=== PATIENT | male | born 1970 | race Caucasian/White ===

== ENCOUNTER 2018-06-09 15:45 | Emergency (ER) | payer OTHER ==
[2018-06-09] MEDS ORDERED: Iohexol 240 (50 ml) PO ONE (16:07)
[2018-06-09] MEDS ORDERED: Sodium Chloride 0.9% 1,000 ML IV STA (16:07)
--- NOTE | 2018-06-09 16:36 | ED PDOC ---
HPI: Abdomen Time Seen by Provider: 06/09/18 15:58 Chief Complaint (Nursing): Back Pain Chief Complaint (Provider): Abd pain History Per: Patient History/Exam Limitations: no limitations Onset/Duration Of Symptoms: Days (1 month) Additional Complaint(s): Pt. with abd pain all over and back pain. No numbness, tingles, weakness, incontinence, constipation. No fever. No nausea, vomit, diarrhea. Not taking his meds for htn, dm, chol. No chest pain, dyspnea. No testicular pain, dysuria. Past Medical History Reviewed: Nursing Documentation, Vital Signs Vital Signs: Last Vital Signs Temp 99.0 F 06/09/18 15:50 Pulse 88 06/09/18 15:50 Resp 18 06/09/18 15:50 BP 166/91 H 06/09/18 15:50 Pulse Ox 100 06/09/18 15:50 - Medical History PMH: Diabetes, HTN, Hypercholesterolemia - Surgical History Surgical History: No Surg Hx - Family History Family History: States: Unknown Family Hx - Living Arrangements Living Arrangements: With Family - Home Medications Home Medications: Ambulatory Orders Medication Instructions Recorded Dicyclomine [Bentyl] 20 mg PO Q6 PRN #15 tab 04/16/15 Famotidine [Pepcid] 20 mg PO BID #10 tab 04/16/15 - Allergies Allergies/Adverse Reactions: Allergies Allergy/AdvReac Type Severity Reaction Status Date / Time No Known Allergies Allergy Verified 06/09/18 15:50 Review of Systems ROS Statement: Except As Marked, All Systems Reviewed And Found Negative Gastrointestinal: Positive for: Abdominal Pain Musculoskeletal: Positive for: Back Pain Physical Exam - Reviewed Nursing Documentation Reviewed: Yes Vital Signs Reviewed: Yes - Physical Exam Appears: Positive for: Non-toxic, No Acute Distress Head Exam: Positive for: ATRAUMATIC, NORMAL INSPECTION, NORMOCEPHALIC Skin: Positive for: Normal Color, Warm, DRY Eye Exam: Positive for: EOMI, Normal appearance, PERRL ENT: Positive for: Normal ENT Inspection Neck: Positive for: Normal, Painless ROM Cardiovascular/Chest: Positive for: Regular Rate, Rhythm Respiratory: Positive for: CNT, Normal Breath Sounds Gastrointestinal/Abdominal: Positive for: Soft, Tenderness (diffuse) Back: Positive for: Normal Inspection. Negative for: L CVA Tenderness, R CVA Tenderness Extremity: Positive for: Normal ROM. Negative for: Tenderness Neurologic/Psych: Positive for: Alert, Oriented - Laboratory Results Result Diagrams: 06/09/18 16:00 06/09/18 16:00 Interpretation Of Abn Labs: 357 glucose - ECG ECG: Positive for: Interpreted By Me, Viewed By Me ECG Rhythm: Positive for: Normal QRS, Normal ST Segment, Sinus Rhythm O2 Sat by Pulse Oximetry: 100 Pulse Ox Interpretation: Normal - Progress ED Course And Treament: 1813: Dr. Painting took over care. Fu on ct. Disposition - Clinical Impression Clinical Impression: Abdominal pain - Patient ED Disposition Is Patient to be Admitted: Transfer of Care - Disposition Disposition Time: 18:14 Condition: STABLE Patient Signed Over To: Alexys Painting III
[2018-06-09 16:48] LABS: PROTHROMBIN TIME 11.4 Seconds (9.8-13.1)
[2018-06-09 16:51] LABS: PARTIAL THROMBOPLASTIN TIME 33.1 Seconds (25.6-37.1)
[2018-06-09 17:00] LABS: BASO % 0.6 % (0.0-2.0); EOS # 0.2 K/uL (0.0-0.7); HEMOGLOBIN 15.6 g/dL (12.0-18.0); LYMPH # 1.7 K/uL (1.0-4.3); LYMPH % 30.3 % (20.0-40.0); MEAN CELL VOLUME 86.9 fl (80.0-94.0); MEAN CORPUSCULAR HEMOGLOBIN 30.6 pg (27.0-31.0); MEAN CORPUSCULAR HGB CONC 35.2 g/dL (33.0-37.0); MEAN PLATELET VOLUME 9.4 fl (7.2-11.7); MONO # 0.5 K/uL (0.0-0.8); MONO % 8.3 % (0.0-10.0); NEUT # 3.2 K/uL (1.8-7.0); NEUT % 57.8 % (50.0-75.0); NRBC % 0.2 % (0.0-0.0); RBC 5.11 Mil/uL (4.40-5.90); WHITE BLOOD COUNT 5.5 K/uL (4.8-10.8)
[2018-06-09 17:04] LABS: BARBITURATES, UR NEGATIVE (NEGATIVE); BENZODIAZEPINES, UR NEGATIVE (NEGATIVE); OPIATES, UR NEGATIVE (NEGATIVE); PHENCYCLIDINE, UR NEGATIVE (NEGATIVE)
[2018-06-09 17:06] LABS: ALB/GLOB RATIO 1.3 (1.0-2.1); ALBUMIN 4.3 g/dL (3.5-5.0); ALT/SGPT 38 U/L (21-72); AST/SGOT 28 U/L (17-59); BLOOD UREA NITROGEN 18 mg/dl (9-20); CALCIUM 9.1 mg/dL (8.4-10.2); GFR NON-AFRICAN AMERICAN > 60; LIPASE 169 U/L (23-300)
[2018-06-09] MEDS ORDERED: Iohexol 300 100 ML IJ ONE (17:46)
[2018-06-09] MEDS ORDERED: Sodium Chloride 0.9% 100 ML ONE (17:46)
--- NOTE | 2018-06-09 19:47 | ED PDOC ---
- Laboratory Results Result Diagrams: 06/09/18 16:00 06/09/18 16:00 - ECG O2 Sat by Pulse Oximetry: 100 Medical Decision Making Medical Decision Making: recd approx 6pm on endorsement from Dr Haskins pending CT abd pelv Report from Dr Alva radiologist reviewed On re-eval states feeling somewhat better. Abdomen without focal tenderness 740pm. Results explained UDip neg for evidence infection GI consult recommended as outpatient Rx motrin, bentyl and mad citrate as he reports constipation. Wedding Planner offered but family refused and wanted son to translate. Disposition - Clinical Impression Clinical Impression: Abdominal pain - POA Present On Arrival: None - Disposition Referrals: Luciano Villaseñor MD [Staff Provider] - [facility] [Outside] Disposition: Routine/Home Disposition Time: 19:47 Condition: STABLE Additional Instructions: Followup with clinic and GI doctor for further testing. Return to ER for any new or worsening symptoms. Prescriptions: Dicyclomine [Bentyl] 10 mg PO QID PRN #12 cap PRN Reason: Gi Distress Ibuprofen [Motrin Tab] 600 mg PO Q6 PRN #15 tab PRN Reason: Pain, Moderate (4-7) Magnesium Citrate [Citrate of Mag] 50 ml PO BID PRN #1 bottle PRN Reason: Constipation Instructions: Low Back Pain (DC), Acute Abdomen (Belly Pain), Adult (DC) Forms: [facility] (Tunisian) Print Language: [place] CITIZEN
[2018-06-09 20:21] VITALS: BP 148/95; PULSE 67; RESP 16; TEMP 98.5; O2SAT 99
--- NOTE | 2018-06-10 09:44 | CARD ---
APPROVED REPORT Date of service: 06/09/2018 EKG Measurement Heart [id number] <Conclusion> Normal sinus rhythm Normal ECG
--- NOTE | 2018-06-10 12:31 | CT ---
Date of service: 06/09/2018 PROCEDURE: CT Abdomen and Pelvis with contrast HISTORY: abd pain COMPARISON: None. TECHNIQUE: Following oral and intravenous contrast administration, a CT examination of the abdomen and pelvis performed from the domes of the diaphragms to the symphysis pubis with reformatted datasets provided not only axial but also sagittal and coronal series. Coronal and sagittal reformats were generated. Contrast dose: Omnipaque 300, 98 cc Radiation dose: Total exam DLP = 1024.24 mGy-cm. This CT exam was performed using one or more of the following dose reduction techniques: Automated exposure control, adjustment of the mA and/or kV according to patient size, and/or use of iterative reconstruction technique. FINDINGS: LOWER THORAX: Small hiatal hernia identified. Trace fibrosis/linear atelectasis lingula base. LIVER: Diminished attenuation is seen throughout the liver compatible hepatic steatosis. No discrete mass or intrahepatic biliary dilatation appreciated. GALLBLADDER AND BILE DUCTS: Contracted gallbladder otherwise unremarkable. PANCREAS: Unremarkable. No gross lesion or ductal dilatation. SPLEEN: Unremarkable. ADRENALS: Unremarkable. No mass. KIDNEYS AND URETERS: Unremarkable. No hydronephrosis. No solid mass. VASCULATURE: Unremarkable. No aortic aneurysm. No aortic atherosclerotic calcification or mural plaque present. BOWEL: Unremarkable. No obstruction. No gross mural thickening. Moderate fecal loading throughout the majority colon. APPENDIX: Normal appendix. PERITONEUM: Unremarkable. No free fluid. No free air. LYMPH NODES: Unremarkable. No enlarged lymph nodes. BLADDER: Urinary bladder is decompressed limiting evaluation the wall. Underlying cystitis not completely excluded. REPRODUCTIVE: Unremarkable. BONES: No acute fracture. OTHER FINDINGS: None. IMPRESSION: 1. No bowel obstruction, mesenteric edema, ascites or free intra peritoneal gas collection. No suspicious bowel findings. 2. Urinary bladder is decompressed limiting evaluation of the wall. Underlying cystitis not completely excluded. 3. Hepatic steatosis.
== END 2018-06-09 20:21 | disposition home or self-care (01) ==
LOC: H.ER 15:45
DX: R10.9 Unspecified abdominal pain (principal); E11.9 Type 2 diabetes mellitus without complications; I10 Essential (primary) hypertension; E78.00 Pure hypercholesterolemia, unspecified
CPT/HCPCS: 74177; 80053; 80320; 80324; 80345; 80346; 80349; 80353; 80358; 80361; 82948; 83690; 83992; 84484; 85025; 85610; 85730; 93005; 96374; 96375; 99285; J1885; J7030; Q9966; Q9967

== ENCOUNTER 2018-08-21 18:08 | Emergency (ER) | payer SELFPAY ==
[2018-08-21] MEDS ORDERED: Sodium Chloride 0.9% 1,000 ML IV STA (20:02)
[2018-08-21 20:28] LABS: BASO % 0.5 % (0.0-2.0); EOS # 0.1 K/uL (0.0-0.7); EOS % 2.3 % (0.0-4.0); LYMPH # 1.8 K/uL (1.0-4.3); LYMPH % 30.6 % (20.0-40.0); MEAN CELL VOLUME 86.1 fl (80.0-94.0); MEAN CORPUSCULAR HEMOGLOBIN 30.1 pg (27.0-31.0); MEAN PLATELET VOLUME 8.8 fl (7.2-11.7); MONO # 0.5 K/uL (0.0-0.8); NEUT # 3.4 K/uL (1.8-7.0); NEUT % 58.6 % (50.0-75.0); NRBC % 0.1 % (0.0-0.0); RBC 4.97 Mil/uL (4.40-5.90); RED CELL DISTRIBUTION WIDTH 13.6 % (11.5-14.5); WHITE BLOOD COUNT 5.8 K/uL (4.8-10.8)
[2018-08-21 20:30] LABS: URINE BACTERIA RARE (<OCC); URINE BILIRUBIN NEGATIVE (NEGATIVE); URINE BLOOD NEGATIVE (NEGATIVE); URINE CLARITY CLEAR (Clear); URINE COLOR YELLOW (YELLOW); URINE GLUCOSE (UA) NEG (NEGATIVE); URINE HYALINE CAST 0-2 /hpf (0-2); URINE LEUKOCYTE ESTERASE NEG Leu/uL (Negative); URINE PROTEIN NEGATIVE (NEGATIVE); URINE UROBILINOGEN 0.2-1.0 mg/dL (0.2-1.0)
[2018-08-21 20:38] LABS: ALB/GLOB RATIO 1.3 (1.0-2.1); ALBUMIN 4.5 g/dL (3.5-5.0); ALT/SGPT 29 U/L (21-72); AST/SGOT 30 U/L (17-59); BLOOD UREA NITROGEN 11 mg/dl (9-20); CALCIUM 9.4 mg/dL (8.4-10.2); GFR NON-AFRICAN AMERICAN > 60; LIPASE 104 U/L (23-300)
--- NOTE | 2018-08-21 20:49 | ED PDOC ---
HPI: General Adult Time Seen by Provider: 08/21/18 19:16 Chief Complaint (Nursing): Back Pain Chief Complaint (Provider): Back and Abdominal Pain History Per: Patient History/Exam Limitations: no limitations Onset/Duration Of Symptoms: Days (since May) Current Symptoms Are (Timing): Still Present Additional Complaint(s): 48 year old male with a history of psoriasis presents to the ED with abdominal pain and back pain since May 2018. Patient reports he was seen in this ED when symptoms developed in May and followed up at the clinic. Pain has been ongoing since onset but worsened today. He reports pain worsens after he eats anything. Patient has a history of constipation but had a normal bowel movement today. He denies any fever, chest pain, or shortness of breath. Patient states back pain is mostly in mid to low back that sometimes radiates to his upper back. PMD: none provided Past Medical History Reviewed: Historical Data, Nursing Documentation, Vital Signs Vital Signs: Last Vital Signs Temp 98.3 F 08/21/18 18:50 Pulse 92 H 08/21/18 18:50 Resp 18 08/21/18 18:50 BP 155/99 H 08/21/18 19:14 Pulse Ox 100 08/21/18 18:50 - Medical History PMH: Diabetes, HTN, Hypercholesterolemia Other PMH: psoriasis - Surgical History Surgical History: No Surg Hx - Family History Family History: States: Unknown Family Hx - Social History Current smoker - smoking cessation education provided: No Ex-Smoker (has not smoked in the last 12 months): No Alcohol: None Drugs: Denies - Home Medications Home Medications: Ambulatory Orders Medication Instructions Recorded Dicyclomine [Bentyl] 20 mg PO Q6 PRN #15 tab 04/16/15 Famotidine [Pepcid] 20 mg PO BID #10 tab 04/16/15 Dicyclomine [Bentyl] 10 mg PO QID PRN #12 cap 06/09/18 Ibuprofen [Motrin Tab] 600 mg PO Q6 PRN #15 tab 06/09/18 Magnesium Citrate [Citrate of Mag] 50 ml PO BID PRN #1 bottle 06/09/18 Dicyclomine [Bentyl] 20 mg PO Q12 PRN #20 tab 08/22/18 - Allergies Allergies/Adverse Reactions: Allergies Allergy/AdvReac Type Severity Reaction Status Date / Time No Known Allergies Allergy Verified 08/21/18 18:54 Review of Systems ROS Statement: Except As Marked, All Systems Reviewed And Found Negative Constitutional: Negative for: Fever Cardiovascular: Negative for: Chest Pain Respiratory: Negative for: Shortness of Breath Gastrointestinal: Positive for: Abdominal Pain. Negative for: Constipation Musculoskeletal: Positive for: Back Pain Physical Exam - Reviewed Nursing Documentation Reviewed: Yes Vital Signs Reviewed: Yes - Physical Exam Appears: Positive for: No Acute Distress Head Exam: Positive for: ATRAUMATIC, NORMOCEPHALIC Skin: Positive for: Normal Color, Warm, Dry Eye Exam: Positive for: EOMI, Normal appearance, PERRL Neck: Positive for: Normal, Painless ROM Cardiovascular/Chest: Positive for: Regular Rate, Rhythm. Negative for: Murmur Respiratory: Positive for: Normal Breath Sounds. Negative for: Respiratory Distress Gastrointestinal/Abdominal: Positive for: Tenderness (diffusely mild ) Back: Positive for: Normal Inspection Extremity: Positive for: Normal ROM (upper and lower). Negative for: Pedal Edema, Deformity Neurologic/Psych: Positive for: Alert, Oriented (x3) - Laboratory Results Result Diagrams: 08/21/18 20:17 08/21/18 20:17 Lab Results: Total Bilirubin 1.1 mg/dl (0.2-1.3) 08/21/18 20:17 AST 30 U/L (17-59) 08/21/18 20:17 ALT 29 U/L (21-72) 08/21/18 20:17 Alkaline Phosphatase 92 U/L (38-126) 08/21/18 20:17 Total Protein 7.9 G/DL (6.3-8.2) 08/21/18 20:17 Albumin 4.5 g/dL (3.5-5.0) 08/21/18 20:17 Globulin 3.5 gm/dL (2.2-3.9) 08/21/18 20:17 Albumin/Globulin Ratio 1.3 (1.0-2.1) 08/21/18 20:17 Lipase 104 U/L (23-300) 08/21/18 20:17 Urine Color Yellow (YELLOW) 08/21/18 20:17 Urine Clarity Clear (Clear) 08/21/18 20:17 Urine pH 6.0 (5.0-8.0) 08/21/18 20:17 Ur Specific [place] 1.010 (1.003-1.030) 08/21/18 20:17 Urine Protein Negative mg/dL (NEGATIVE) 08/21/18 20:17 Urine Glucose (UA) Neg mg/dL (NEGATIVE) 08/21/18 20:17 Urine Ketones Negative mg/dL (NEGATIVE) 08/21/18 20:17 Urine Blood Negative (NEGATIVE) 08/21/18 20:17 Urine Nitrate Negative (NEGATIVE) 08/21/18 20:17 Urine Bilirubin Negative (NEGATIVE) 08/21/18 20:17 Urine Urobilinogen 0.2-1.0 mg/dL (0.2-1.0) 08/21/18 20:17 Ur Leukocyte Esterase Neg [place]/uL (Negative) 08/21/18 20:17 Urine RBC (Auto) < 1 /hpf (0-3) 08/21/18 20:17 Urine Microscopic WBC 1 /hpf (0-5) 08/21/18 20:17 Urine Bacteria Rare (<OCC) 08/21/18 20:17 Hyaline Casts 0-2 /hpf (0-2) 08/21/18 20:17 - ECG O2 Sat by Pulse Oximetry: 100 (RA) Pulse Ox Interpretation: Normal Medical Decision Making Medical Decision Making: Time: 1926 Impression: 48 year old male with abdominal pain Plan: --labs 00:27 CT Abd Pelvis COMMENTS: The liver is of uniform attenuation without mass or defect. There is no intra or extrahepatic biliary ductal dilatation. The spleen is normal. The gallbladder is underdistended and diffusely thickened. The pancreas is of normal contour and attenuation characteristics. There is no evidence of adrenal mass. Both kidneys demonstrate prompt and equal nephrograms. The kidneys are normal in size, shape and configuration. There is no evidence of renal or ureteral mass. No renal or ureteral calculi are identified. There is no hydroureter or hydronephrosis. No evidence for appendicitis. There is no bowel wall thickening. No evidence for small or large bowel obstruction. There is no evidence of abdominal ascites or lymphadenopathy. There is no evidence of intrinsic or extrinsic bladder mass. There is no pelvic ascites or lymphadenopathy. Prostatomegaly. Distended bladder. Images of the lung bases show no evidence of pleural or parenchymal mass. There are no pleural effusions. The bony structures are free of lytic or blastic lesions. IMPRESSION: Mild diffuse thickening of nondistended gallbladder. Nonspecific. Mild prostatomegaly. Mildly distended bladder. 02:20 US Gallbladder Findings: Liver is normal in size measuring 17 cm. Limited visualization of the left hepatic lobe secondary to gaseous bowel distention. Gaseous distention limiting the evaluation of the gallbladder. Normal gallbladder wall thickness measuring 2 mm. No evidence of cholelithiasis or acute cholecystitis. Nondilated common bile duct measuring 3 mm. The pancreas was not well visualized. Unremarkable IVC. Unremarkable aorta. The right kidney measures 12.1x1.8x7 cm. Impression: Gaseous bowel distention limiting the evaluation which was performed ventricle study. No evidence of cholelithiasis or acute cholecystitis. 02:33 Labs reviewed no clinically significant abnormalities. Patient's CT and US were reviewed. Provider reinforced to patient need to follow up with clinic as well as with GI. Patient is stable for discharge, diagnosis is abdominal pain. Scribe Attestation: Documented by Kailey Yarbrough and Ike Argueta, acting as a scribe for Pradeep Ramírez MD. Provider Scribe Attestation: All medical record entries made by the Scribe were at my direction and personally dictated by me. I have reviewed the chart and agree that the record accurately reflects my personal performance of the history, physical exam, medical decision making, and the department course for this patient. I have also personally directed, reviewed, and agree with the discharge instructions and disposition. Disposition - Clinical Impression Clinical Impression: Abdominal pain - Disposition Referrals: Luciano Villaseñor MD [Staff Provider] - Disposition: Routine/Home Disposition Time: 02:33 Condition: STABLE Additional Instructions: YISEL NANCE, thank you for letting us take care of you today. Your provider was Pradeep Ramírez MD and you were treated for BACK/ABD PAIN. The emergency medical care you received today was directed at your acute symptoms. If you were prescribed any medication, please fill it and take as directed. It may take several days for your symptoms to resolve. Return to the Emergency Department if your symptoms worsen, do not improve, or if you have any other problems. Please contact your doctor or call one of the physicians/clinics you have been referred to that are listed on the Patient Visit Information form that is included in your discharge packet. Bring any paperwork you were given at discharge with you along with any medications you are taking to your follow up visit. Our treatment cannot replace ongoing medical care by a primary care provider outside of the emergency department. Thank you for allowing the [facility] team to be part of your care today. If you had an X-Ray or CT scan: A Radiologist will review the ED reading if any change in treatment is needed we will contact you. If you had a blood, urine, or wound culture: It will take several days for the results, if any change in treatment is needed we will contact you. If you had an STI test: It will take 48 hours for the results. Please call after 1 week if you have not heard back. Prescriptions: Dicyclomine [Bentyl] 20 mg PO Q12 PRN #20 tab PRN Reason: abdominal pain Instructions: Acute Abdomen (Belly Pain) Forms: [facility] (Yoruba)
[2018-08-21] MEDS ORDERED: Iohexol 240 (50 ml) PO ONE (21:18)
[2018-08-21] MEDS ORDERED: Iohexol 240 (50 ml) ONE (22:22)
[2018-08-21] MEDS ORDERED: Iohexol 300 100 ML IJ ONE (23:26)
[2018-08-21] MEDS ORDERED: Sodium Chloride 0.9% 50 ML IV ONE (23:26)
[2018-08-22] MEDS ORDERED: Morphine 4 MG/ML VIAL ONE (00:48)
[2018-08-22] MEDS ORDERED: Morphine 4 MG/ML VIAL IVP ONE (01:03)
[2018-08-22 03:46] VITALS: BP 137/81; PULSE 81; RESP 16; TEMP 98.3; O2SAT 98
--- NOTE | 2018-08-22 11:18 | CT ---
Date of service: 08/21/2018 PROCEDURE: CT Abdomen and Pelvis with contrast HISTORY: abd pain COMPARISON: Abdomen pelvis CT with contrast 06/09/2018. TECHNIQUE: Following oral and intravenous contrast administration, a CT examination of the abdomen and pelvis was performed from the domes of the diaphragms to the symphysis pubis with reformatted datasets provided not only axial but also sagittal and coronal series. Contrast dose: Omnipaque 300, 95 cc Radiation dose: Total exam DLP = 766.17 mGy-cm. This CT exam was performed using one or more of the following dose reduction techniques: Automated exposure control, adjustment of the mA and/or kV according to patient size, and/or use of iterative reconstruction technique. FINDINGS: LOWER THORAX: Small hiatal hernia is identified. Trace bilateral basilar dependent atelectasis identified. LIVER: Limited panic steatosis reiterated. No gross lesion or ductal dilatation. GALLBLADDER AND BILE DUCTS: The gallbladder is not dilated significantly. There question loosing calculi near the neck. No biliary tree dilatation PANCREAS: Appreciable grossly. SPLEEN: Mildly enlarged at 14.4 cm without discrete mass related. ADRENALS: Unremarkable. No mass. KIDNEYS AND URETERS: Unremarkable. No hydronephrosis. No solid mass. VASCULATURE: Unremarkable. No aortic aneurysm. No aortic atherosclerotic calcification or mural plaque present. BOWEL: Unremarkable. No obstruction. No gross mural thickening. APPENDIX: The appendix is prominent at its origin at the cecal base and otherwise normal in caliber. No periappendiceal or mural thickening to suggest appendicitis at this time. PERITONEUM: Unremarkable. No free fluid. No free air. LYMPH NODES: Unremarkable. No enlarged lymph nodes. BLADDER: Distended but otherwise unremarkable appearing. REPRODUCTIVE: Unremarkable. BONES: No acute fracture. OTHER FINDINGS: None. IMPRESSION: No definitive acute abdominal or pelvic findings as discussed above although the spleen is enlarged to 14.4 cm. Clinically correlate further. Hepatic steatosis reiterated. Preliminary report provided by Vladislav, 08/22/2018, 2:20 a.m..
--- NOTE | 2018-08-22 16:51 | US ---
Date of service: 08/22/2018 HISTORY: abd pain COMPARISON: Comparison is made to the previous CT of the abdomen and pelvis dated 08/21/2018 TECHNIQUE: Sonographic evaluation of the right upper quadrant of the abdomen. FINDINGS: LIVER: Measures 17 cm in length. Mild increased echogenicity of the liver parenchyma. No mass. No intrahepatic bile duct dilatation. GALLBLADDER: Unremarkable. No gallstones. COMMON BILE DUCT: Measures 3 mm. No stones. No dilatation. PANCREAS: Unremarkable as visualized. No mass. No ductal dilatation. RIGHT KIDNEY: Measures 12.1 x 5.8 x 7 cm in length. Normal echogenicity. No calculus, mass, or hydronephrosis. AORTA: No aneurysmal dilatation. IVC: Unremarkable. OTHER FINDINGS: None . IMPRESSION: No evidence of cholelithiasis or cholecystitis. No definite ultrasound evidence of acute pathology in the right upper quadrant
== END 2018-08-22 03:46 | disposition home or self-care (01) ==
LOC: H.ER 18:08
DX: R10.9 Unspecified abdominal pain (principal); E11.9 Type 2 diabetes mellitus without complications; I10 Essential (primary) hypertension; Z87.891 Personal history of nicotine dependence
CPT/HCPCS: 74177; 76705; 80053; 81003; 82948; 83690; 85025; 85651; 96374; 99284; J1885; J2270; J2405; J7030; Q9966; Q9967

== ENCOUNTER 2018-09-22 08:29 | Emergency (ER) | payer SELFPAY ==
[2018-09-22 08:45] VITALS: BMI 35.0
[2018-09-22 08:46] VITALS: BP 149/90; PULSE 101; RESP 20; TEMP 97.5; O2SAT 98
--- NOTE | 2018-09-22 09:25 | ED PDOC ---
HPI: Skin/Bite Injury Time Seen by Provider: 09/22/18 08:55 Chief Complaint (Nursing): Abnormal Skin Integrity Chief Complaint (Provider): Abnormal Skin Integrity History Per: Patient History/Exam Limitations: no limitations Onset/Duration Of Symptoms: Days (x5) Current Symptoms Are (Timing): Still Present Additional Complaint(s): 48 year old male with past medical history of diabetes, hypertension, and high cholesterol, presents to the emergency department for an evaluation of skin rash on lower back that radiates to his left flank and abdomen since 09/18/18. PCP: Dr. Yen G[place] Past Medical History Reviewed: Historical Data, Nursing Documentation, Vital Signs Vital Signs: Last Vital Signs Temp 97.5 F L 09/22/18 08:45 Pulse 101 H 09/22/18 08:45 Resp 20 09/22/18 08:45 BP 149/90 09/22/18 08:45 Pulse Ox 98 09/22/18 08:45 - Medical History PMH: Diabetes, HTN, Hypercholesterolemia - Family History Family History: States: Unknown Family Hx - Home Medications Home Medications: Ambulatory Orders Medication Instructions Recorded Dicyclomine [Bentyl] 20 mg PO Q6 PRN #15 tab 04/16/15 Famotidine [Pepcid] 20 mg PO BID #10 tab 04/16/15 Dicyclomine [Bentyl] 10 mg PO QID PRN #12 cap 06/09/18 Ibuprofen [Motrin Tab] 600 mg PO Q6 PRN #15 tab 06/09/18 Magnesium Citrate [Citrate of Mag] 50 ml PO BID PRN #1 bottle 06/09/18 Dicyclomine [Bentyl] 20 mg PO Q12 PRN #20 tab 08/22/18 Ondansetron ODT [Zofran ODT] 4 mg PO Q6 PRN #8 odt 08/22/18 Acyclovir [Zovirax] 800 mg PO 5XD 10 Days tablet 09/22/18 Gabapentin 300 mg PO ASDIR #60 capsule 09/22/18 - Allergies Allergies/Adverse Reactions: Allergies Allergy/AdvReac Type Severity Reaction Status Date / Time No Known Allergies Allergy Verified 08/21/18 18:54 Review of Systems ROS Statement: Except As Marked, All Systems Reviewed And Found Negative Constitutional: Negative for: Fever, Chills Skin: Positive for: Rash (lower back, left flank, left abdomen) Neurological: Negative for: Weakness, Numbness Physical Exam - Reviewed Nursing Documentation Reviewed: Yes Vital Signs Reviewed: Yes - Physical Exam Appears: Positive for: Non-toxic, No Acute Distress Head Exam: Positive for: ATRAUMATIC, NORMAL INSPECTION (no rash present), NORMOCEPHALIC Skin: Positive for: Rash (mid-lumbar, paraspinal, and left flank with crusting and erythema to umbilicus (-) discharge). Negative for: Normal Color Eye Exam: Positive for: Normal appearance, EOMI ENT: Negative for: Pharyngeal Erythema, Tonsillar Swelling Cardiovascular/Chest: Positive for: Regular Rate, Rhythm Extremity: Positive for: Normal ROM (upper/lower) Neurologic/Psych: Positive for: Alert, Oriented (x3) - ECG O2 Sat by Pulse Oximetry: 98 (RA) Pulse Ox Interpretation: Normal Medical Decision Making Medical Decision Making: Initial Impression: vesicular rash Differential diagnosis: shingle (herpes zoster) Time: 929 --Upon provider reevaluation, patient is medically stable and requires no further treatment in the ED at this time. Patient will be discharged home with Rx for Zovirax and gabapentin then advised to follow up in [facility] in 3 days. Counseling was provided and all questions were answered regarding diagnosis. There is agreement to discharge plan. Return if symptoms persist or worsen. Clinical Impression: Shingles Scribe Attestation: Documented by Kellee Perales, acting as a scribe for Genna Ware MD. Provider Scribe Attestation: All medical record entries made by the Scribe were at my direction and personally dictated by me. I have reviewed the chart and agree that the record accurately reflects my personal performance of the history, physical exam, medical decision making, and the department course for this patient. I have also personally directed, reviewed, and agree with the discharge instructions and disposition. Disposition - Clinical Impression Clinical Impression: Shingles - Patient ED Disposition Is Patient to be Admitted: No Counseled Patient/Family Regarding: Diagnosis, Need For Followup, Rx Given - Disposition Referrals: [facility] [Outside] Disposition: Routine/Home Disposition Time: 09:30 Condition: GOOD Additional Instructions: YISEL NANCE, thank you for letting us take care of you today. Your provider was Genna Ware MD and you were treated for POSS RASH. The emergency medical care you received today was directed at your acute symptoms. If you were prescribed any medication, please fill it and take as directed. It may take several days for your symptoms to resolve. Return to the Emergency Department if your symptoms worsen, do not improve, or if you have any other problems. Please contact your doctor or call one of the physicians/clinics you have been referred to that are listed on the Patient Visit Information form that is included in your discharge packet. Bring any paperwork you were given at discharge with you along with any medications you are taking to your follow up visit. Our treatment cannot replace ongoing medical care by a primary care provider outside of the emergency department. Thank you for allowing the [facility] team to be part of your care today. If you had an X-Ray or CT scan: A Radiologist will review the ED reading if any change in treatment is needed we will contact you. If you had a blood, urine, or wound culture: It will take several days for the results, if any change in treatment is needed we will contact you. If you had an STI test: It will take 48 hours for the results. Please call after 1 week if you have not heard back. Prescriptions: Acyclovir [Zovirax] 800 mg PO 5XD 10 Days tablet Gabapentin 300 mg PO ASDIR #60 capsule Instructions: Ira (DANICA) Forms: [employer] (Pashto) Print Language: ESTONIAN
== END 2018-09-22 09:40 | disposition home or self-care (01) ==
LOC: H.ER 08:29
DX: B02.9 Zoster without complications (principal); E11.9 Type 2 diabetes mellitus without complications; E78.00 Pure hypercholesterolemia, unspecified; I10 Essential (primary) hypertension; Z79.899 Other long term (current) drug therapy

== ENCOUNTER 2018-09-26 07:41 | Day surgery (SDC) | payer SELFPAY ==
[2018-09-26 08:03] VITALS: BMI 32.1
[2018-09-26] MEDS ORDERED: Lactated Ringer's 500 ML IV ONE ×2 (08:04→09:18)
[2018-09-26] MEDS ORDERED: Propofol 10 mg/ml Inj (20 ML) ONE (09:31)
[2018-09-26 10:21] VITALS: TEMP 98; O2SAT 100
[2018-09-26 10:36] VITALS: BP 115/72; PULSE 72; RESP 18
== END 2018-09-26 13:39 | disposition home or self-care (01) ==
LOC: H.ENDO 07:41
PROVIDERS: ATTEND Internal Medicine Gastroenterology
DX: K62.1 Rectal polyp (principal); E11.9 Type 2 diabetes mellitus without complications; E78.5 Hyperlipidemia, unspecified; I10 Essential (primary) hypertension; E66.9 Obesity, unspecified; R10.84 Generalized abdominal pain
CPT/HCPCS: 45380; 82948; 88305; J2001; J2704; J7120